=== PATIENT | male | born 1995 | race Caucasian/White ===

== ENCOUNTER 2019-01-12 01:49 | Emergency (ER) | payer OTHER ==
[~2019-01-12] VITALS: Ht 172.7 cm; Wt 75.3 kg
[2019-01-12 02:06] VITALS: BP 125/82
[2019-01-12] MEDS ORDERED: TETANUS-DIPTH-ACEL PERTUSSIS 0.5ML SYRG IM ONE (03:45)
== END 2019-01-12 04:09 | disposition home or self-care (01) ==
LOC: ER 01:54
DX: S01.111A Laceration without foreign body of right eyelid and periocular area, initial encounter (principal); M62.838 Other muscle spasm; Y08.89XA Assault by other specified means, initial encounter; Y93.89 Activity, other specified; Y99.8 Other external cause status; Y92.89 Other specified places as the place of occurrence of the external cause
CPT/HCPCS: 12011; 70450; 70486; 72125; 90715